=== PATIENT | female | born 1990 | race Caucasian/White ===

== ENCOUNTER 2023-08-21 01:59 | Emergency (ER) | payer BC, SELFPAY ==
[2023-08-21 02:06] VITALS: BP 149/82; PULSE 99; RESP 18; TEMP 36.7; O2SAT 99; BMI 43.1
[2023-08-21] MEDS: ONDANSETRON ODT 4 MG TAB PO (02:35)
--- NOTE | 2023-08-21 02:37 | ED.NAVMDI ---
HPI - Nausea/Vomiting/Diarrhea General Chief complaint: Diarrhea Stated complaint: Diarrhea, middle abdominal pain Time Seen by Provider: 08/21/23 02:11 Source: patient Mode of arrival: ambulatory Limitations: no limitations History of Present Illness HPI Narrative: 33-year-old female reports 2 day history of diarrhea and cramping abdominal pain in the left upper quadrant. Has been nauseated and had a couple of dry heaves tonight but no vomiting. No bloody stools. No fevers over 100.4. No dizziness or feelings of hypotension. She has not tried any Tylenol or ibuprofen. She tried taking a couple of Pepto-Bismol tablets earlier today with no improvement in her symptoms. Has not tried Imodium. No known sick contacts, no other household contacts ill. Not immunocompromised. No pelvic pain, dysuria. No history of abdominal surgeries. Is able to hold down liquids and some food. Is urinating at least 3 times daily. Patient states that the pain is dull and achy but comes in crampy sharp waves at times that do improve after bowel movements. She reports that she has never had diarrhea this bad. Past medical history notable for depression and anxiety. Reports that her home meds are Strattera, bupropion, venlafaxine. At bedtime she uses clonidine, Vistaril and Remeron. No pertinent travel. ROS notable for the GI symptoms as above only, otherwise denies times 12 systems. Related Data Home Medications Medication Instructions Recorded Confirmed atomoxetine PO 08/21/23 bupropion HCl PO 08/21/23 clonidine HCl .ROUTE 08/21/23 hydroxyzine pamoate .ROUTE 08/21/23 mirtazapine .ROUTE 08/21/23 venlafaxine PO 08/21/23 Allergies Allergy/AdvReac Type Severity Reaction Status Date / Time No Known Drug Allergies Allergy Verified 08/21/23 02:08 [facility] Social History Smoking Status: Never smoker Do you use any of these nicotine containing products: Vaping Products Second hand tobacco smoke exposure: No How often do you have a drink containing alcohol: never How often do you have six or more drinks on one occasion: Never AUDIT-C Alcohol total score: 0 Non-prescribed substance use: former substance user Exam Const: Vital Signs, click to edit/add: Vital Signs - 24 hr 08/21/23 02:06 08/21/23 02:43 Temperature 98.0 F 98.0 F Pulse Rate [Right Pulse Oximeter] 99 Respiratory Rate 18 Blood Pressure [Ri ght Upper Arm] 149/82 H Pulse Oximetry 99 Oxygen Delivery Me thod Room Air Documenting provider has reviewed patient's vital signs: yes Common normals: no apparent distress and alert Other: Appears well nourished, well hydrated. No signs of intoxication or impairment. Good historian. HENMT: Common normals: normocephalic Head and scalp: normocephalic Face and sinus: normal facial exam Mouth: oral and palatal mucosa normal Throat: posterior oropharynx normal Eye: Common normals: conjunctivae normal and no scleral icterus General eye: normal appearance of both eyes Conjunctiva: conjunctiva(e) normal Neck & C-Spine: Common normals: no lymphadenopathy Resp: Common normals: normal respiratory effort, no use of accessory muscles and clear to auscultation bilaterally Effort & inspection: able to speak in complete sentences Auscultation: clear to auscultation bilaterally Cardio: Common normals: regular rate, regular rhythm, S1 normal heart sound, S2 normal heart sound and no murmurs Rate: regular rate Rhythm: regular rhythm Heart sounds: S1 normal and S2 normal GI: Common normals: Normal to inspection, nondistended, normoactive bowel sounds present, soft to palpation and no masses Palpation: soft Other: Mild tenderness to left upper quadrant only. No rebound tenderness, guarding or mass. Extremity: Common normals: normal to inspection and no pedal edema Neuro: Sensorium/orientation: alert Motor exam: no movement abnormalities noted Psych: Activity/motor behavior: appropriate eye contact Mood and affect: euthymic mood Insight: insight good Judgement: judgment good Skin: Common normals: no rashes or lesions noted General skin exam: no rashes or lesions noted Course Course ED Course: 33-year-old female with diarrheal illness. No red flags of bloody diarrhea, severe abdominal pain, fever, hypotension, tachycardia, or signs of dehydration. No signs of obstruction. Has not tried adequate oral symptomatic control medications. Counseled patient that I do not think she would benefit from IV fluids, lab work or CT scan without a trial of oral medications. Recommended 4 mg of loperamide, 10 mg of Toradol and 4 mg of Zofran. We will let this sit for 20-30 minutes and then do a trial of oral rehydration. If she tolerates this well, can manage with this outpatient otherwise consider additional workup if it is unsuccessful. Reevaluation(s) Time of Reevaluation #1: 03:36 Reevaluation #1: Re-evaluation 45 minutes after medication shows that she is feeling much better. She has held down to glasses of liquids and has had no further diarrhea. We discussed home management with Imodium, will give Zofran from vending machine medications, push fluids, alarm symptoms reviewed that would warrant ED presentation. All questions answered. She verbalizes understanding and agreement Vital Signs Vital signs: Initial Vital Signs Temperature 98.0 F 08/21/23 02:06 Temperature Source Temporal Artery Scan 08/21/23 02:06 Pulse Rate 99 08/21/23 02:06 Respiratory Rate 18 08/21/23 02:06 Blood Pressure 149/82 H 08/21/23 02:06 Blood Pressure Mean 104 08/21/23 02:06 Blood Pressure Position Sitting 08/21/23 02:06 Pulse Oximetry 99 08/21/23 02:06 Oxygen Delivery Method Room Air 08/21/23 02:06 Vital Signs Temperature 98.0 F 08/21/23 02:06 Pulse Rate 99 08/21/23 02:06 Respiratory Rate 18 08/21/23 02:06 Blood Pressure 149/82 H 08/21/23 02:06 Pulse Oximetry 99 08/21/23 02:06 Oxygen Delivery Method Room Air 08/21/23 02:06 Temperature 98.0 F 08/21/23 02:43 Pulse Rate 99 08/21/23 02:06 Respiratory Rate 18 08/21/23 02:06 Blood Pressure 149/82 H 08/21/23 02:06 Pulse Oximetry 99 08/21/23 02:06 Oxygen Delivery Method Room Air 08/21/23 02:06 Medications Administered Medications: Generic Name Dose Route Start Last Admin Trade Name Freq PRN Reason Stop Dose Admin Ketorolac Tromethamine 10 mg 08/21/23 02:36 08/21/23 02:43 Ketorolac 10 Mg Tablet PO 08/21/23 02:37 10 mg ONCE ONE Administration Loperamide HCl 4 mg 08/21/23 02:36 08/21/23 02:43 Loperamide Hcl 2 Mg Capsule PO 08/21/23 02:37 4 mg ONCE ONE Administration Ondansetron HCl 4 mg 08/21/23 02:36 08/21/23 02:35 Ondansetron Odt 4 Mg Tab PO 08/21/23 02:37 4 mg ONCE ONE Administration Discharge Plan Discharge Clinical Impression: Gastroenteritis Patient Disposition: Home, Self-Care Condition: Improved Instructions: Acute Diarrhea (ED) Additional Instructions: I am glad that the medications are helping. For many people, a single dose of the Imodium is often sufficient to treat symptoms. I will give you a small supply of Zofran, the anti nausea medication. Keep pushing fluids as much as possible. 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 Would recommend that you take 1 tablet for each additional large bout of diarrhea, up to every 2 hours. Try not to exceed 10 tablets in 24 hours. If you start having high fevers, bloody diarrhea or signs and symptoms of dehydration, I would come back to the emergency department. At this time, the risk of radiation from CT scan seems to outweigh any potential benefit. Your vital signs and exam are not suggestive of dehydration or bacterial infection. Rest for today and push fluids. Slowly advance her diet as tolerated, starting with crackers, toast and bland foods . Avoid alcohol. May return to work or other social obligations Thursday if you are feeling better. Activity Level: Activity as Tolerated Discharge Diet: Regular Prescriptions: No Action clonidine HCl .ROUTE venlafaxine PO atomoxetine [Strattera] PO hydroxyzine pamoate .ROUTE mirtazapine .ROUTE bupropion HCl [Wellbutrin SR] PO Follow Up/Referrals: Provider,Not a Local [Primary Care Provider] - Stand Alone Forms: [employer] Info Instructions
[2023-08-21 02:43] VITALS: TEMP 36.7
[2023-08-21] MEDS: KETOROLAC 10 MG TABLET PO (02:43)
[2023-08-21] MEDS: LOPERAMIDE HCL 2 MG CAPSULE 4 MG PO (02:43)
[2023-08-21 03:38] VITALS: BP 135/74; PULSE 89; RESP 18; TEMP 36.7; O2SAT 99
[2023-08-21 03:39] VITALS: BP 135/74; PULSE 89; RESP 18; TEMP 36.7
== END 2023-08-21 03:39 | disposition home or self-care (01) ==
PROVIDERS: Emergency Provider Family Medicine
DX: K52.9 Noninfective gastroenteritis and colitis, unspecified (principal)
CPT/HCPCS: 99283; 99284; A9270

== ENCOUNTER 2023-12-17 20:46 | Emergency (ER) | payer MEDICAID, SELFPAY ==
[2023-12-17 21:00] VITALS: BP 146/103; PULSE 104; RESP 18; TEMP 37.3; O2SAT 98; BMI 43.1
[2023-12-17 21:01] LABS: Appearance Urine Turbid (Clear); Bilirubin Urine Negative (Negative); Blood Urine 2+ (Negative); Color Urine Amber (Yellow); Glucose Urine Negative (Negative); Ketones Urine Negative (Negative); Leukocyte Esterase Urine 3+ (Negative); Nitrite Urine Negative (Negative); Protein Urine 3+ (Negative); Specific Gravity Urine 1.025 (1.000-1.030)
[2023-12-17 21:11] LABS: Bacteria Urine Moderate; RBC Urine 50-100 (0-2); Squamous Epithelial Cell Urine Moderate (None-Few); WBC Urine >100 (0-5)
--- NOTE | 2023-12-17 21:25 | ED.GENADULT ---
HPI - General Adult General Date Seen: 12/17/23 Chief complaint: Urogenital Problems, Female Stated complaint: Poss UTI Time Seen by Provider: 12/17/23 21:11 History of Present Illness HPI narrative: This is a pleasant 33-year-old female with a past medical history of frequent bladder infections, also history of drug abuse (now sober, going to meetings). She presents to the ER tonight with concern for a bladder infection. She notices symptoms of bladder infections well, having had so many over the years. She recalls that she had a bladder infection about a month ago that was treated through the [facility] in [place] with a course of cephalexin and got better. She has not had any symptoms for the past several weeks. This evening at the end of her workday she had an episode of significant dysuria that she took as the onset of bladder infection symptoms. Since then she has also had a little bit of urgency and suprapubic discomfort. No other symptoms. No fever chills. No nausea or vomiting. No flank pain. No body aches. No vaginal bleeding or discharge. She came to the ER tonight after she finished her work day and went to her and a meeting, knowing that she had to work all day tomorrow and that typically runs will worse every day until she gets some treated. Related Data Home Medications Medication Instructions Recorded Confirmed atomoxetine PO 08/21/23 bupropion HCl PO 08/21/23 clonidine HCl .ROUTE 08/21/23 hydroxyzine pamoate .ROUTE 08/21/23 mirtazapine .ROUTE 08/21/23 venlafaxine PO 08/21/23 Allergies Allergy/AdvReac Type Severity Reaction Status Date / Time No Known Drug Allergies Allergy Verified 08/21/23 02:08 [facility] Social History Smoking Status: Never smoker Do you use any of these nicotine containing products: Vaping Products Second hand tobacco smoke exposure: No How often do you have a drink containing alcohol: never How often do you have six or more drinks on one occasion: Never AUDIT-C Alcohol total score: 0 Non-prescribed substance use: former substance user Exam Narrative: Exam Narrative: Constitutional: Appears well-developed and well-nourished. Active. Non-toxic appearing. HENT: Head: Atraumatic. No signs of injury. Nose: No nasal discharge. Mouth/Throat: Mucous membranes are moist. Eyes: Conjunctivae normal and EOM are normal. Pupils are equal, round, and reactive to light. Right eye exhibits no discharge. Left eye exhibits no discharge. No icterus. Neck: Normal range of motion. Neck supple. No adenopathy. No stridor. Cardiovascular: Normal rate and regular rhythm. No murmur heard. No murmurs, rubs, or gallops. Brisk capillary refill Pulmonary/Chest: Effort normal. No stridor. No respiratory distress. No wheezes.No rhonchi. No rales. No retractions. Abdominal: Soft. No distension. No mass. There is no tenderness. There is no rebound and no guarding. No CVA tenderness Musculoskeletal: Normal range of motion. No edema. No tenderness. No deformity. Neurological: Alert. Normal strength. No cranial nerve deficit or sensory deficit. Coordination normal. GCS eye subscore is 4. GCS verbal subscore is 5. GCS motor subscore is 6. Skin: Skin is warm. No rash noted. Const: Vital Signs, click to edit/add: Vital Signs - 24 hr 12/17/23 21:00 Temperature 99.1 F Pulse Rate [Pulse Oximeter] 104 H Respiratory Rate 18 Blood Pressure [Ri t Upper Arm] 146/103 H Pulse Oximetry 98 Oxygen Delivery Me thod Room Air Course Vital Signs Vital signs: Initial Vital Signs Temperature 99.1 F 12/17/23 21:00 Temperature Source Temporal Artery Scan 12/17/23 21:00 Pulse Rate 104 H 12/17/23 21:00 Respiratory Rate 18 12/17/23 21:00 Blood Pressure 146/103 H 12/17/23 21:00 Blood Pressure Mean 117 H 12/17/23 21:00 Blood Pressure Position Sitting 12/17/23 21:00 Pulse Oximetry 98 12/17/23 21:00 Oxygen Delivery Method Room Air 12/17/23 21:00 Vital Signs Temperature 99.1 F 12/17/23 21:00 Pulse Rate 104 H 12/17/23 21:00 Respiratory Rate 18 12/17/23 21:00 Blood Pressure 146/103 H 12/17/23 21:00 Pulse Oximetry 98 12/17/23 21:00 Oxygen Delivery Method Room Air 12/17/23 21:00 Temperature 99.1 F 12/17/23 21:00 Pulse Rate 104 H 12/17/23 21:00 Respiratory Rate 18 12/17/23 21:00 Blood Pressure 146/103 H 12/17/23 21:00 Pulse Oximetry 98 12/17/23 21:00 Oxygen Delivery Method Room Air 12/17/23 21:00 Medical Decision Making MDM Narrative Medical decision making narrative: This patient presents for evaluation of dysuria that began this evening, as well as a little bit of bladder suprapubic pain. This clinically is consistent with a urinary tract infection. There is some sign of contamination on the urinalysis with moderate epithelial cells, however the patient's symptoms are highly suggestive for UTI. The amount of pyuria seen on the urinalysis also correlates with infection. There has been no fever, back/flank pain or significant abdominal pain. There is no clinical evidence of pyelonephritis, appendicitis, colitis, diverticulitis or any intraabdominal catastrophe. The patient will be started on antibiotics for the infection. Return if increasing pain, vomiting, fever, or inability to tolerate the oral antibiotic. Follow up with primary physician is indicated if not improving in 2-3 days. She had just finished a course of cephalexin for UTI about a month ago so would not put her back on cephalosporins given risk of resistance. Instymeds prescription for Macrobid 100 mg b.i.d. for 7 days Phenazopyridine 200 mg t.i.d. p.r.n.. Lab Data Labs: Lab Results 12/17/23 Range/Units 20:50 Urine Color Jie A (Yellow) Urine Appearance Turbid A (Clear) Urine pH 6.0 (5.0-8.5) Ur Specific [place] 1.025 (1.000-1.030) Urine Protein 3+ A (Negative) Urine Glucose (UA) Negative (Negative) Urine Ketones Negative (Negative) Urine Blood 2+ A (Negative) Urine Nitrite Negative (Negative) Urine Bilirubin Negative (Negative) Urine Urobilinogen 1.0 (0.2-1.0) Ur Leukocyte Esterase 3+ A (Negative) Urine RBC 50-100 A (0-2) Urine WBC >100 A (0-5) Ur Squamous Epith Cells Moderate A (None-Few) Urine Bacteria Moderate A (None) Discharge Plan Discharge Clinical Impression: Urinary tract infection Patient Disposition: Home, Self-Care Condition: Stable Instructions: Urinary Tract Infection in Women (DC) Additional Instructions: As we discussed, please use the Macrobid (antibiotic) to treat your infection. Take it twice daily for 1 week. Use the phenazopyridine to treat the urinary tract infection symptoms. Caution because phenazopyridine can cause your urine to turn orange colored. Monitor your symptoms carefully and if you get worse come back to the ER right away, especially if you have high fever, body aches or chills, vomiting, pain in your back or kidney or flank, or if you have any other problems Please recheck with your doctor within 1 week Prescriptions: No Action clonidine HCl .ROUTE venlafaxine PO atomoxetine [Strattera] PO hydroxyzine pamoate .ROUTE mirtazapine .ROUTE bupropion HCl [Wellbutrin SR] PO Follow Up/Referrals: Provider,Not a Local [Primary Care Provider] - Stand Alone Forms: [employer] Info Instructions
--- OUTSIDE RECORDS SUMMARY | 2023-12-17 21:35 | XMS_ITS | Clinical Summary ---
Author Name Unknown Organization [facility] Address [place], [place] [address] Care Team Providers Care Metallurgy Teacher Name Role Phone Brigitte Parekh Primary Care Provider [phone] Allergies Active Allergy Reactions Criticality Noted Date Comments Atomoxetine Other - Describe In Comment Field Medium 10/11/2020 Moodiness; tried it in Aug 2020 for ~1 week right when [facility] because she was so werner. Irritable and sad. Citalopram Other - Describe In Comment Field Low 08/12/2017 Medications Medication Sig Dispensed Refills Start Date End Date Status buPROPion (WELLBUTRIN XL) 300 mg Extended-Release tablet Take 300 mg by mouth once daily. 450MG 11/08/2019 Active etonogestrel subdermal implant (NEXPLANON) 68 mg implant Inject 68 mg subcutaneous every 3 years. Active melatonin 5 mg tab tablet Take 5 mg by mouth at bedtime. 10/11/2020 Active omeprazole (PRILOSEC) 20 mg Delayed-Release capsule Take 20 mg by mouth once daily before a meal. 08/29/2020 Active venlafaxine (EFFEXOR XR) 150 mg Extended-Release capsule Take 150 mg by mouth every morning. 06/11/2021 Active glycopyrrolate (ROBINUL) 1 mg tablet 04/16/2022 Active atomoxetine (STRATTERA) 25 mg capsule 80 mg. 12/19/2021 Active multivitamin (MVI) tablet Take 1 Tablet by mouth once daily. 0 07/13/2023 Active cloNIDine HCL (CATAPRES) 0.1 mg tablet Take 1 Tablet (0.1 mg) by mouth at bedtime. 0 07/13/2023 Active hydrOXYzine HCL (ATARAX) 25 mg tabletIndications: LONNY (generalized anxiety disorder) Take 2 Tablets (50 mg) by mouth every 6 hours if needed for Anxiety. 25 Tablet 07/13/2023 Active mirtazapine (REMERON) 30 mg tablet Take 1 Tablet (30 mg) by mouth at bedtime. 0 07/13/2023 Active Active Problems Problem Noted Date Diagnosed Date Attention deficit disorder (ADD) without hyperac tivity 12/03/2020 Adjustment insomnia 10/11/2020 Chronic bilateral thoracic back pain 10/11/2020 Recurrent major depressive disorder, in full rem ission 10/11/2020 Chronic pain of both shoulders 01/22/2020 Muscle weakness 01/22/2020 Neck pain 01/22/2020 Trapezius muscle spasm 01/22/2020 Segmental and somatic dysfunction 01/17/2020 LONNY (generalized anxiety disorder) 03/18/2019 History of methamphetamine abuse 03/18/2019 Overview: Effective living ctr 2017. Goes to NA/AA meetings Effective living ctr 2017. Goes to NA/AA meetings Tobacco abuse 03/18/2019 Overview: 1ppd Acne 11/02/2018 Episode of recurrent major depressive disorder 1 10/13/2016 Overview: manadgeable, will call with concerns or increases Encounters Date Type Department Care Team Description 11/03/2023 2:15 PM CDT Office Visit [facility] [address] [place] [address] Belinda Ward, BREAKDOWN PERSON Dysuria (Painful urination started 10/29. Has a history of MRSA) 11/03/2023 Travel from Last 3 Months Immunizations Name Administration Dates Next Due HPV 9 (Gardasil 9) 07/01/2019 Hepatitis A (Adult) 03/09/2012 Hepatitis A (Peds) 10/26/2008 Hepatitis B (Adult) 02/03/2022 Human Papilloma Virus Vaccine 03/09/2012, 010 Influenza, IIV3 (Age >=3 years) 07/27/2013 Influenza, IIV4 05/10/2020, 9,04/28/2017,05/29 Meningococcal Vaccine (Menactra) 10/26/2008 Pneumococcal Poly,23-Valent (Pneumovax) 05/11/2017 Td (Age >=7 Years) 11/19/2004 Tdap 02/19/2017, 5,07/27/2013,03/09 Social History Tobacco Use Types Packs/Day Years Used Date Smoking Tobacco: Every Day Cigarettes Smokeless Tobacco: Never Tobacco Cessation:Ready to Q uit: Not Asked; Counseling Given: Not Answered Comments:vape Alcohol Use Standard Drinks/Week Comments Not Currently 0 (1 standard drink = 0.6 oz pur e alcohol) PHQ-2 Answer Date Recorded PHQ-2 TOTAL SCORE 0 07/13/2023 Social Connections Answer Date Recorded Frequency of Communication with Friends and Fami ly 0 11/03/2023 Financial Resource Strain Answer Date R ecorded Difficulty of Paying Living Expenses 3 11/03/2023 Difficulty of Paying Living Expenses Not on file 11/03/2023 Food Insecurity Answer Date Recorded Worried About Running Out of Food in the Last Ye ar 1 11/03/2023 Transportation Needs Answer Date Record ed Lack of Transportation (Medical) 1 11/03/2023 Housing Stability Answer Date Recorded Unable to Pay for Housing in the Last Year 1 11/03/2023 Sex and Gender Information Value Date Recorded Sex Assigned at Not on file Gender Identity Not on file Sexual Orientation Not on file Obstetrics History Last Filed Vital Signs Vital Sign Reading Time Taken Comments Blood Pressure 124/76 11/03/2023 2:22 PM CDT Pulse 94 11/03/2023 2:22 PM CDT Temperature 36.8 ??C (98.3 ??F) 11/03/2023 2:22 PM CD T Respiratory Rate 15 04/23/2022 1:14 PM CDT Oxygen Saturation 97% 11/03/2023 2:22 PM CDT Inhaled Oxygen Concentration - - Weight 128.4 kg (283 lb) 11/03/2023 2:22 PM CDT Height 170.2 cm (5' 7.01) 07/13/2023 9:50 AM CS T Body Mass Index 44.31 07/13/2023 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 Plan of Treatment Health Maintenance Due Date Last Done Comments Pneumococcal series for age 6-64 (2 of 2 - PCV) 05/11/2018 05/11/2017 COVID-19 vaccine series (1 - season) 2023 Pap test for age 21-65 09/10/2023 1 (Verified in Care Everywhere or Patient Record) Influenza for age 9-49 04/17/2024 0, 07/01/2019, 04/28/2017, Additional history exists BMI (ht and wt on same day) for age 18+ 07/13/2024 07/13/2023 Depression screening for age 12+ 2024 07/14/20 23, 07/13/2023 Tetanus booster 02/19/2027 02/19/2017, 0 01/2015, 07/27/2013, Additional history exists Tdap Completed 02/19/2017, 0 01/2015, 07/27/2013, Additional history exists HIV for age 15-65 Completed 11/03/2023 Hepatitis C screening for ag e 18-79 Completed 11/03/2023 Procedures Procedure Name Priority Date/Time Associated Diagnosis Comments ANTI HCV Routine 11/03/2023 3:00 PM CDT Screening examination for STD (sexually transmitted disease) TREPONEMA PALLIDUM Routine 11/03/2023 3: 00 PM CDT Screening examination for STD (sexually transmitted disease) ANTI HIV 1/2 Routine 11/03/2023 3:00 PM CDT Screening examination for STD (sexually transmitted disease) GC CHLAMYDIA TRACH PROBE STAT 11/03/2023 2:40 PM CDT Screening examination for STD (sexually transmitted disease) TRICHOMONAS, ROSINA, AND BACTERIAL VAGINOSIS BY JONO Routine 11/03/2023 2:40 PM CDT Screening examination for STD (sexually transmitted disease) URINE CULTURE Add On 11/03/2023 2:15 PM CDT Dysuria Screening examination for STD (sexually transmitted disease) URINALYSIS MICROSCOPIC Routine 11/03/2023 2:15 PM CDT Dysuria UA W/ SEDIMENT EXAM REFLEXED PER CRITERIA Routine 11/03/2023 2:15 PM CDT Dysuria from Last 3 Months Results * TREPONEMA PALLIDUM (11/03/2023 3:00 PM CDT) TREPONEMA PALLIDUM Non-Reacti ve Non-Reacti ve 11/03/2023 8:08 PM CDT [facility] Blood BLOOD SPECIMEN / Unknown Venipuncture / Unknown 11/03/2023 3:00 PM CDT 11/03/2023 3:00 PM CDT Belinda Ward NP SEND OUTS Performing Organization Address [facility] Co de Phone Number [facility] [address] [place] [address], [place] * ANTI HCV (11/03/2023 3:00 PM CDT) HEPATITIS C ANTIBODY Non-Reacti ve Non-React suki 11/03/2023 8:09 PM CDT [facility] Comment:Please note, per www .CDC.gov: If a patient is known to be at high risk of HCV infection, or is symptomatic, and the physician's suspicion of HCV infection is high, HCV RNA testing is often employed and is of diagnostic value, even after an initial negative anti-HCV test result. Blood BLOOD SPECIMEN / Unknown Venipuncture / Unknown 11/03/2023 3:00 PM CDT 11/03/2023 3:00 PM CDT Belinda Ward NP SEND OUTS Performing Organization Address City/[facility]/ZIP Co de Phone Number [facility] [address] [place] [address], [place] * ANTI HIV 1/2 (11/03/2023 3:00 PM CDT) HIV-1/HIV-2 SCREEN Non-Reacti ve Non-Reacti ve 11/03/2023 8:03 PM CDT [facility] Comment:HIV-1 p24 and HIV-1/ HIV-2 Ab Not Detected. Blood BLOOD SPECIMEN / Unknown Venipuncture / Unknown 11/03/2023 3:00 PM CDT 11/03/2023 3:00 PM CDT Belinda Ward NP SEND OUTS Performing Organization Address City/[facility]/ZIP Co de Phone Number [facility] [address] [place] [address], [place] * TRICHOMONAS, ROSINA, AND BACTERIAL VAGINOSIS BY JONO (11/03/2023 2:40 PM CDT) ROSINA SPECIES Negative Negative 12:32 AM CDT [facility] ROSINA GLABRATA Negative Negative 11/04/2023 12:32 AM CDT [facility] TRICHOMONAS VVA Negative Negative 12:32 AM CDT [facility] BACTERIAL VAGINOSIS Negative Negative 11/04/2023 12:32 AM CDT [facility] Other VAGINAL SWAB / Unknown Non-Blood / Unknown 11/03/2023 2:40 PM CDT 11/03/2023 3:05 PM CDT Belinda Ward NP MICROBIOLOGY [facility] [address] [place] [address], [place] * GC CHLAMYDIA TRACH PROBE (11/03/2023 2:40 PM CDT) CHLAMYDIA PROBE Negative 4 1:09 AM CDT [facility] N GONORRHOEAE PROBE Negative 11/04/2023 1:09 AM CDT [facility] Other VAGINAL SWAB / Unknown Non-Blood / Unknown 11/03/2023 2:40 PM CDT 11/03/2023 3:05 PM CDT Belinda Ward NP MICROBIOLOGY [facility] [address] [place] [address], [place] * (ABNORMAL) URINALYSIS MICROSCOPIC (11/03/2023 2:15 PM CDT) RBC 0-2 0-2, None Seen /HPF 11/03/2023 2:33 PM CDT [facility] [address] [employer] WBC 26-50(A) 0-2, 3-5, None Seen /HPF 11/03/2023 2:33 PM CDT [facility] BACTERIA Many(A) None Seen, Rare, Few Bacteria/H PF 11/03/2023 2:33 PM CDT [facility] EPITHELIAL CELLS Few None Seen, Few Epi/HPF 11/03/2023 2:33 PM CDT [facility] WHITE CELL CLUMPS Present(A) (none) 11/03/2023 2:33 PM CDT [facility] Urine URINE SPECIMEN / Unknown Non-Blood / Unknown 11/03/2023 2:15 PM CDT 11/03/2023 2:15 PM CDT Belinda Ward NP URINE [facility] [address] [employer] [address] [place] [address], [place] [phone] * (ABNORMAL) URINE CULTURE (11/03/2023 2:15 PM CDT) CULTURE RESULT(A) 11/06/2023 7:08 AM CDT [facility] CULTURE 50,000-100,000 CFU/mL Staphylococcus aureus 11/06/2023 7:08 AM CDT [facility] Urine URINE SPECIMEN / Unknown Non-Blood / Unknown 11/03/2023 2:15 PM CDT 11/03/2023 2:15 PM CDT Narrative Organism Antibiotic Method Susceptibility Staphylococcus aureus OXACILLIN 0.5: S Comment:Oxacillin eastman sceptible should not be interpreted as penicillin or amoxicillin susceptible. Staphylococcus aureus DOXYCYCLINE <=0.5: S Staphylococcus aureus CEFAZOLIN S Staphylococcus aureus TRIMETHOPRIM/SULF <=0.5/9.5: S Staphylococcus aureus NITROFURANTOIN <=16: S Belinda Ward NP MICROBIOLOGY [email or web address] [address] [place] [address], [place] * (ABNORMAL) UA W/ SEDIMENT EXAM REFLEXED PER CRITERIA (11/03/2023 2:15 PM CDT) COLOR Yellow Yellow Color 11/03/2023 2:23 PM CDT [employer] CLARITY Slightly Cloudy(A) Clear Clarity 11/03/2023 2:23 PM CDT [employer] SPECIFIC GRAVITY,URINE 1.015 1.010, 1.015, 1.020, 1.025 11/03/2023 2:23 PM CDT [facility] PH,URINE 6.5 6.0, 7.0, 8.0, 5.5, 6.5, 7.5, 8.5 11/03/2023 2:23 PM CDT [facility] UROBILINOGEN, QUALITATIVE Normal Normal EU/dl 11/03/2023 2:23 PM CDT [facility] PROTEIN, URINE Negative Negative mg/dL 11/03/2023 2:23 PM CDT [facility] GLUCOSE, URINE Negative Negative mg/dL 11/03/2023 2:23 PM CDT [facility] KETONES,URINE Negative Negative mg/dL 11/03/2023 2:23 PM CDT [facility] BILIRUBIN,URI NE Negative Negative 11/03/2023 2:23 PM CDT [facility] OCCULT BLOOD,URINE Large(A) Negative 11/03/2023 2:23 PM CDT [facility] NITRITE Negative Negative 11/03/2023 2:23 PM CDT [facility] LEUKOCYTE ESTERASE Large(A) Negative 11/03/2023 2:23 PM CDT [facility] [employer] [facility] Urine URINE SPECIMEN / Unknown Non-Blood / Unknown 11/03/2023 2:15 PM CDT 11/03/2023 2:15 PM CDT Belinda Ward BREAKDOWN PERSON URINE [facility] [address] [place] [address], [place] [phone] from Last 3 Months Additional Health Concerns Infection Onset Date Last Indicated MRSA 04/23/2022 04/23/2022 Care Teams Metallurgy Teacher Relationship Specialty Start Date End Date Brigitte Parekh PA [address] [place] [address] PCP - General Physician Metal Treater 07/13/23
[2023-12-17 21:49] VITALS: BP 135/84; PULSE 89; RESP 18; TEMP 37.3; O2SAT 98
== END 2023-12-17 21:53 | disposition home or self-care (01) ==
LOC: ED 21:33
PROVIDERS: Emergency Provider Emergency Medicine
DX: N39.0 Urinary tract infection, site not specified (principal)
CPT/HCPCS: 81001; 87086; 99282; 99283

== ENCOUNTER 2025-01-05 15:50 | Emergency (ER) | payer MEDICAID, SELFPAY ==
--- OUTSIDE RECORDS SUMMARY | 2024-12-30 17:44 | XMS_ITS | Encounter Summary ---
Author Organization [facility] Address [address] [place] [address] Care Team Providers Care Secretary Bookkeeper Name Role Phone Rob Moreno MD Unavailable [phone] Flory Golden NP Unavailable [phone] Wilberto French MD Unavailable [phone] No Ref-Primary, Physician Primary Care Provider Emani Estes APRN FLASHER ADJUSTER Unavailable Reason for Visit * Reason Comments Wound Check Encounter Details Date Type Department Care Team (Late st Contact Info) Description 12/30/2024 5:44 PM CDT - 12/30/2024 6:39 PM CDT Emergency [facility] Emergency Dept [address] [place] [address] Cyn Raymundo MD [facility] [address] [place], [place] [id number] Discharge Disposition: Left Without Being Seen Social History Tobacco Use Types Packs/Day Years Used Date Smoking Tobacco: Former Smokeless Tobacco: Never Alcohol Use Standard Drinks/Week Comments Not Currently 0 (1 standard drink = 0.6 oz pur e alcohol) PHQ-2 Answer Date Recorded PHQ-2 Score 0 02/24/2023 Adolescent Education Answer Date Record ed Getting School Help Needed Not on file 05/09 Comments No Sex and Gender Information Value Date Recorded Sex Assigned at Not on file 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 Gender Identity Not on file Sexual Orientation Not on file documented as of this encounter Last Filed Vital Signs Vital Sign Reading Time Taken Comments Blood Pressure 145/95 12/30/2024 3:17 PM CDT Pulse 98 12/30/2024 3:17 PM CDT Temperature 35.9 C (96.7 F) 12/30/2024 3:17 PM CDT Respiratory Rate 18 12/30/2024 3:17 PM CDT Oxygen Saturation 99% 12/30/2024 3:17 PM CDT Inhaled Oxygen Concentration - - Weight 121.4 kg (267 lb 10.2 oz) 12/30/2024 3:17 PM CDT Height 170.2 cm (5' 7) 12/30/2024 3:17 PM CDT Body Mass Index 41.92 12/30/2024 3:17 PM CDT documented in this encounter Medications at Time of Discharge acetaminophen (TYLENOL) 500 MG tabletIndications: Cutaneous abscess of back (any part, except buttock) Take 1 tablet (500 mg) by mouth every 6 hours as needed for mild pain 30 tablet 12/25/2021 atomoxetine (STRATTERA) 25 MG capsule 60 mg 12/19/2021 Biotin w/ Vitamins C & E (HAIR SKIN & NAILS GUMMIES PO) Take by mouth daily as needed buPROPion (WELLBUTRIN XL) 150 MG 24 hr tablet 11/29/2021 cloNIDine (CATAPRES) 0.1 MG tablet 09/18/2022 etonogestrel (NEXPLANON) 68 MG IMPLIndications:Palmer rveillance of previously prescribed implantable subdermal contraceptive 1 each (68 mg) by Subdermal route once glycopyrrolate (ROBINUL) 1 MG tablet Take 2 mg by mouth every morning 11/21/2021 hydrOXYzine (VISTARIL) 25 MG capsule Take 50 mg by mouth 3 times daily as needed 11/29/2021 ibuprofen (ADVIL/MOTRIN) 200 MG tablet Take 1-2 tablets by mouth every 4 hours as needed melatonin 3 MG tablet Take 5 mg by mouth nightly as needed mirtazapine (REMERON) 15 MG tablet Take 30 mg by mouth as needed 05/21/2022 multivitamin (ONE-DAILY) tabletIndications: Person living in residential institution Take 1 tablet by mouth daily 90 tablet 3 06/25/2022 omeprazole (PRILOSEC) [address] capsule Take 20 mg by mouth 08/29/2020 polyethylene glycol (MIRALAX) 17 GM/Dose powderIndications: Constipation, unspecified constipation type Take 17 g (1 Capful) by mouth daily as needed for constipation Use daily until passing soft stool daily then as needed 510 g 1 09/15/2023 venlafaxine (EFFEXOR-XR) 75 MG 24 hr capsule Take 37.5 mg by mouth 2 times daily 11/19/2020 documented as of this encounter ED Notes * Danni Heredia RN - 12/30/2024 6:38 PM CDT Pt called no answer this is 3rd call * Delfino Sanchez RN - 12/30/2024 6:27 PM CDT Pt called for a second time at 1827. Pt does not appear to be in lobby. * Delfino Sanchez RN - 12/30/2024 5:56 PM CDT Pt called at 1756. No answer from pt in lobby * Chelsea Lowry RN - 12/30/2024 3:14 PM CDT Pt arrives ambulatory into triage per [facility] for eval of wounds on her L buttock and side. Hx of MRSA. Wounds occur when she uses meth and picks her skin. Last use this morning - smokes or snorts does not inject. Denies fevers. Reports hx of similar wounds requesting antibiotics. Would like toreturn to [facility] today. No SI/HI. Calm and cooperative in triage. documented in this encounter Plan of Treatment Not on file documented as of this encounter Visit Diagnoses Not on filedocumented in this encounter Additional Health Concerns Infection Onset Date Last Indicated Resolved Time MRSA 12/23/2021 12/23/2021 Assessment Noted Time PHQ-9 Depression Total Score: 10 022 1:15 PM CDT documented as of this encounter Care Teams Secretary Bookkeeper Relationship Specialty Start Date End Date No Ref-Primary, Physician PCP - General 12/23/21 Rob Moreno MD [address] [facility] [address] [place], [place] [address] Referring Physician Family Medicine 10/04/20 Flory Golden, AUTOMATION CONTROL TECHNICIAN [facility] [address] [place] [phone] Referring Physician Primary Care - CC 12/19/21 Wilberto French MD [address] [facility] [address] [place], [place] [address] Dermapathology 12/19/21 Emani Estes APRN FLASHER ADJUSTER [address] [place] [id number] Assigned PCP 09/10/23 documented as of this encounter
--- OUTSIDE RECORDS SUMMARY | 2025-01-05 15:52 | XMS_ITS | Encounter Summary ---
Author Organization [facility] Address [address] [place] [address] Care Team Providers Care Meterman Name Role Phone Rob Moreno MD Unavailable [phone] Rebecca Pearce MD Primary Care Provider [phone] Rebecca Pearce MD Unavailable [phone] Oksana Palmer DO Unavailable [phone] Rebecca Pearce MD Unavailable [phone] Rob Moreno MD Unavailable [phone] Rebecca Pearce MD Unavailable [phone] Flory Golden NP Unavailable [phone] Wilberto French MD Unavailable [phone] No Ref-Primary, Physician Primary Care Provider Oksana Palmer DO Unavailable [phone] Emani Estes MAT CUTTER TELEGRAPH OFFICE ROUTE AIDE Unavailable Reason for Visit * Reason Onset Date Comments Appointment 12/13/2020 Scalp cyst Encounter Details Date Type Department Care Team (Late st Contact Info) Description 12/13/2020 Telephone [facility] [address] [place] [address] None Appointment (Scalp cyst) Social History Tobacco Use Types Packs/Day Years [...] on file 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 No / Unsure 02/24/2023 7:58 AM CDT documented as of this encounter Miscellaneous Notes * Telephone Encounter - Cesar Foreman - 12/19/2020 2:24 PM CDT [facility] Phone Message May a detailed message be left on voicemail: yes Reason for Call: Other: Lucia called regarding below and has not heard back within the 24 hour timeframe. Please call her back to schedule. Thanks Action Taken: Message routed to: [facility] ([facility]): DERM Travel Screening: Not Applicable * Telephone Encounter - Cesar Foreman - 12/14/2020 1:39 PM CDT [facility] Phone Message May a detailed message be left on voicemail: yes Reason for Call: Other: Lucia called regarding below. Please call her back to schedule. Thanks Action Taken: Message routed to: [facility] ([facility]): DERM Travel Screening: Not Applicable * Telephone Encounter - Cassy Baker - 12/13/2020 9:17 AM CDT [facility] Phone Message May a detailed message be left on voicemail: yes Reason for Call: Appointment Intake Referring Provider Name: Rob Moreno MD in FAMILY PRACTICE Diagnosis and/or Symptoms: Scalp cyst Please call Lucia to schedule Pt Thank you Action Taken: Message routed to: [facility] ([facility]): Derm Travel Screening: Not Applicable documented in this encounter Plan of Treatment Not on file documented as of this encounter Visit Diagnoses Not on filedocumented in this encounter Additional Health Concerns Infection Onset Date Last Indicated Resolved Time Rule Out COVID-19 12/23/2021 12/24/2021 12/24/2021 3:14 AM CDT COVID-19 12/23/2021 12/24/2021 01/14/2022 11:3 9 PM CDT MRSA 12/23/2021 12/23/2021 documented as of this encounter Care Teams Meterman Relationship Specialty Start Date End Date Rebecca Pearce MD [address] [facility] [address] [place] [address] PCP - General Family Medicine 10/10/20 12/22/21 No Ref-Primary, Physician PCP - General 12/23/21 Rob Moreno MD [facility] [id number] [address] Referring Physician Family Medicine 10/04/20 Rebecca Pearce MD [address] [place] [address] Assigned PCP 11/05/20 01/09/21 Oksana Palmer DO [address] [facility] [address] [place] [address] Assigned PCP 01/10/21 01/19/21 Rebecca Pearce MD [address] [place] [address] Assigned PCP 01/20/21 09/28/21 Rob Moreno MD [address] [facility] [address] [place] [address] Assigned PCP 09/29/21 12/07/21 Rebecca Pearce MD [address] [place] [address] Assigned PCP 12/08/21 03/21/22 Flory Golden NP [facility] [address] [place] [address] Referring Physician Primary Care - CC 12/19/21 Wilbreto French MD [address] [facility] 98 [place] [address] Dermapathology 12/19/21 Oksana Palmer DO [address] [facility] [address] [place] [address] Assigned PCP 03/22/22 09/09/23 Emani Estes APRN TELEGRAPH OFFICE ROUTE AIDE [address] [place] [address] Assigned PCP 09/10/23 documented as of this encounter
--- OUTSIDE RECORDS SUMMARY | 2025-01-05 15:52 | XMS_ITS | Clinical Summary ---
Author Organization [facility] Address [address] [place] [address] Care Team Providers Care Sterilizer Machine Operator Name Role Phone Madhav Moreno MD Unavailable [phone] Flory Golden NP Unavailable [phone] Wilberto French MD Unavailable [phone] No Ref-Primary, Physician Primary Care Provider Emani Estes MUD MIXER OPERATOR THERAPY DIRECTOR Unavailable Allergies Active Allergy Reactions Criticality Noted Date Comments Citalopram Fatigue,Other (See Comments) Low 017 Medications etonogestrel (NEXPLANON) 68 MG IMPLIndications:S urveillance of previously prescribed implantable subdermal contraceptive 1 each (68 mg) by Subdermal route once Active hydrOXYzine (VISTARIL) 25 MG capsule Take 50 mg by mouth 3 times daily as needed 11/30/19 22 Active glycopyrrolate (ROBINUL) 1 MG tablet Take 2 mg by mouth every morning 11/22/19 22 Active buPROPion (WELLBUTRIN XL) 150 MG 24 hr tablet 11/30/19 22 Active omeprazole (PRILOSEC) [address] capsule Take 20 mg by mouth 08/29/19 21 Active venlafaxine (EFFEXOR-XR) 75 MG 24 hr capsule Take 37.5 mg by mouth 2 times daily 11/20/19 21 Active Biotin w/ Vitamins C & E (HAIR SKIN & NAILS GUMMIES PO) Take by mouth daily as needed Active ibuprofen (ADVIL/MOTRIN) 200 MG tablet Take 1-2 tablets by mouth every 4 hours as needed Active melatonin 3 MG tablet Take 5 mg by mouth nightly as needed Active atomoxetine (STRATTERA) 25 MG capsule 60 mg 12/20/19 22 Active acetaminophen (TYLENOL) 500 MG tabletIndications :Cutaneous abscess of back (any part, except buttock) Take 1 tablet (500 mg) by mouth every 6 hours as needed for mild pain 30 tablet 12/26/19 22 Active mirtazapine (REMERON) 15 MG tablet Take 30 mg by mouth as needed 05/21/20 22 Active multivitamin (ONE-DAILY) tabletIndications :Person living in residential institution Take 1 tablet by mouth daily 90 tablet 3 06/25/20 22 Active cloNIDine (CATAPRES) 0.1 MG tablet 09/18/19 23 Active polyethylene glycol (MIRALAX) 17 GM/Dose powderIndications :Constipation, unspecified constipation type Take 17 g (1 Capful) by mouth daily as needed for constipation Use daily until passing soft stool daily then as needed 510 g 1 09/15/19 24 Active Active Problems Problem Noted Date Diagnosed Date Chronic bilateral thoracic back pain 10/11/2020 Recurrent major depressive disorder, in full rem ission 10/11/2020 Adjustment insomnia 10/11/2020 History of substance use disorder 10/11/2020 Attention deficit hyperactiv ity disorder (ADHD), combined type 10/11/2020 Chronic pain of both shoulders 01/22/2020 Neck pain 01/22/2020 LONNY (generalized anxiety disorder) 03/18/2019 History of marijuana use 03/18/2019 Overview (10/11/2020): Quit 7-18 History of methamphetamine abuse 03/18/2019 Overview (10/11/2020): Effective living ctr 2017. Goes to NA/AA meetings Encounters Date Type Department Care Team Description 12/30/2024 5:44 PM CDT - 12/30/2024 6:39 PM CDT Emergency [facility] Emergency Dept [address] [place] [phone] Cyn Raymundo MD Discharge Disposition: Left Without Being Seen 12/30/2024 Travel from Last 3 Months Immunizations Immunization Administration Dates Next Due HPV9 (Gardasil) 07/01/2019 Hepatitis A (VAQTA)(ADULT 19+) 03/09/2012 Hepatitis A (Vaqta/Havrix)(P eds 12m-18y) 10/26/2008 Meningococcal ACWY (Menactra ) 10/26/2008 Pneumococcal 23 valent 05/11/2017 TDAP Vaccine (Adacel) 02/19/2017, 015,07/27/2013,03/09 Td (Adult), Adsorbed 11/19/2004 Family History Medical History Relation Comments Depression Brother 1 Obesity Brother 1 Substance Abuse Brother 1 Alcoholism Father Depression Father Mental Illness Father Substance Abuse Father Depression Half-Sister 1 Arthritis Maternal Grandfather Cancer Maternal Grandfather Diabetes Maternal Grandfather Alzheimer Disease Maternal Grandmother Mental Illness Maternal Grandmother Alcoholism Mother Allergies Mother Asthma Mother Depression Mother Mental Illness Mother Obesity Mother Stomach Problem Mother Substance Abuse Mother Urinary tract infection Mother Depression Paternal Grandmother Hyperlipidemia Paternal Grandmother Hypertension Paternal Grandmother Mental Illness Paternal Grandmother Obesity Paternal Grandmother Relation Status Comments Brother 1 Brother 2 Alive Father Alive Half-Sister 1 Alive Half-Sister 2 Alive Maternal Grandfather Maternal Grandmother Mother Paternal Grandmother Social History Tobacco Use Types Packs/Day Years Used Date Smoking Tobacco: Former Smokeless Tobacco: Never Tobacco Cessation:Counseling Given: Not Answered Alcohol Use Standard Drinks/Week Comments Not Currently 0 (1 standard drink = 0.6 oz pur e alcohol) PHQ-2 Answer Date Recorded PHQ-2 Score 0 02/24/2023 Adolescent Education Answer Date Record ed Getting School Help Needed Not on file 05/09 Comments No Sex and Gender Information Value Date Recorded Sex Assigned at Not on file Legal Sex Female 7:37 AM SET UP TECHNICIAN Gender Identity Not on file Sexual Orientation Not on file Last Filed Vital Signs Vital Sign Reading [...] Mass Index 41.92 12/30/2024 3:17 PM CDT Plan of Treatment Health Maintenance Due Date Last Done Comments ADVANCE CARE PLANNING 1992 ANNUAL REVIEW OF HM ORDERS 1992 DEPRESSION ACTION PLAN 1992 HPV IMMUNIZATION (3 - 3-dose series) 09/23/2019 07/01/2019, 01/03/2010 HEPATITIS B IMMUNIZATION (2 of 3 - 19+ 3-dose series) 03/03/2022 02/03/2022 PHQ-9 06/25/2022 12/23/2021, 12/18/2021 YEARLY PREVENTIVE VISIT 12/18/2022 12/18/2021 COVID-19 Vaccine ( season) 2024 INFLUENZA VACCINE (Season Ended) 2025 05/10/2020, 07/01/2019, 04/28/2017, Additional history exists DTAP/TDAP/TD IMMUNIZATION (6 - Td or Tdap) 02/19/2027 02/19/2017, 06/22/2015, 07/27/2013, Additional history exists PAP 02/28/2027 02/29/2024, 08/18, 06/22/2017 ZOSTER IMMUNIZATION (1 of 2) 2042 MENINGITIS IMMUNIZATION Completed 10/26/2008 Pneumococcal Vaccine: Pediatrics (0 to 5 Years) and At-Risk Patients (6 to 49 Years) Aged Out 05/11/2017 No longer eligible based on patient's age to complete this topic HEPATITIS C SCREENING Completed 11/03/2023 , 06/25/2022, 12/18/2021, Additional history exists HIV SCREENING Completed 11/03/2023, 04/2022, 12/18/2021, Additional history exists Procedures Procedure Name Priority Date/Time Associated Diagnosis Comments HIV ANTIGEN ANTIBODY COMBO Routine 06/25/2022 11:38 AM SET UP TECHNICIAN Person living in residential institution HEPATITIS C SCREEN REFLEX TO HCV RNA QUANT AND GENOTYPE Routine 06/25/2022 11:38 AM SET UP TECHNICIAN Person living in residential institution PAP IMAGED THIN LAYER SCREEN Routine 09/10/2020 11:37 AM SET UP TECHNICIAN Screening for cervical cancer from Last 3 Months or Most Recently Relevant to Health Maintenance Results * HIV Antigen Antibody Combo (06/25/2022 11:38 AM SET UP TECHNICIAN) HIV Antigen Antibody Combo Nonreactive Nonreactive 06/26/2022 11:49 AM SET UP TECHNICIAN [facility] DO Comment:HIV-1 p24 Ag & HIV-1 /HIV-2 Ab Not Detected Blood STRUCTURE OF RIGHT UPPER LIMB / Unknown Venipuncture / Unknown 06/25/2022 11:38 AM SET UP TECHNICIAN 06/25/2022 11:38 AM SET UP TECHNICIAN us Flory Golden NP LAB - BLOOD ORDERABLES Final R esult Performing Organization Address City/[facility]/ZIP Co de Phone Number [facility] Specialty Core/Prot/Endo [address] [facility], [address] [phone] * Hepatitis C Screen Reflex to HCV RNA Quant and Genotype (06/25/2022 11:38 AM SET UP TECHNICIAN) Hepatitis C Antibody Nonreactive Nonreactive 06/26/2022 11:49 AM SET UP TECHNICIAN [facility] DO Blood STRUCTURE OF RIGHT UPPER LIMB / Unknown Venipuncture / Unknown 06/25/2022 11:38 AM SET UP TECHNICIAN 06/25/2022 11:38 AM SET UP TECHNICIAN Narrative [facility] - 06/26/2022 11:49 AM SET UP TECHNICIAN Assay performance characteristics have not been established for newborns, infants, and children. us Flory Golden NP LAB - BLOOD ORDERABLES Final R esult [facility] Specialty Core/Prot/Endo [address] [facility] [address] [facility], [address] [phone] * Pap imaged thin layer screen reflex to HPV if ASCUS - recommend age 25 - 29 (09/10/2020 11:37 AM SET UP TECHNICIAN) PAP FREDY Nova Report Patient Name: EMILEE CURRAN MR#: [id number] Specimen #: [id number] Collected: 09/10/2020 Received: 09/11/2020 Reported: 09/14/2020 15:15 Ordering Phy(s): MADHAV MORENO For improved result formatting, select 'View Enhanced Report Format' under Linked Documents section. SPECIMEN/STAIN PROCESS: Pap imaged thin layer prep screening (Surepath, FocalPoint with guided screening) Pap-Cyto x 1, Pap with reflex to HPV if ASCUS x 1 SOURCE: Cervical, endocervical Pap imaged thin layer prep screening (Surepath, FocalPoint with guided screening) SPECIMEN ADEQUACY: Satisfactory for evaluation. -Transformation zone component present. CYTOLOGIC INTERPRETATION: Negative for intraepithelial lesion or malignancy Electronically signed out by: LIZETTE Castrejon (ASCP) CLINICAL HISTORY: LMP: 09/02/20 Papanicolaou Test Limitations: Cervical cytology is a screening test with limited sensitivity; regular screening is critical for cancer prevention; Pap tests are primarily effective for the diagnosis/preventi on of squamous cell carcinoma, not adenocarcinomas or other cancers. COLLECTION SITE: Client: [facility] Location: [facility] (B) The technical component of this testing was completed at the [facility], with the professional component performed at the [facility], [address] [place] [phone] ([phone]) PAUL Cytologic material (specimen) 09/10/2020 11:37 AM SET UP TECHNICIAN 09/11/2020 8:52 AM SET UP TECHNICIAN Madhav Moreno MD LAB - [facility] SPECIMEN Final Result COPATH from Last 3 Months or Most Recently Relevant to Health Maintenance Additional Health Concerns Infection Onset Date Last Indicated MRSA 12/23/2021 12/23/2021 Care Teams Sterilizer Machine Operator Relationship Specialty Start Date End Date No Ref-Primary, Physician PCP - General 12/23/21 Madhav Moreno MD [address] [facility] [address] [place] [address] Referring Physician Family Medicine 10/04/20 Flory Golden, WELLNESS MANAGER [facility] [address] [place] [phone] Referring Physician Primary Care - CC 12/19/21 Wilberto French MD [address] [facility] [address] [place], [place] [phone] Dermapathology 12/19/21 Eamni Estes APRN THERAPY DIRECTOR [address] [place], [place] [phone] Assigned PCP 09/10/23
--- OUTSIDE RECORDS SUMMARY | 2025-01-05 15:52 | XMS_ITS | Clinical Summary ---
Author Organization [facility] Address [address] [place] [address] Care Team Providers Care Advertising Rep Name Role Phone Chelsea Islas MD Primary Care Provider [phone] Allergies Active Allergy Reactions Criticality Noted Date Comments Atomoxetine Other - Describe In Comment Field Medium 10/11/2020 Moodiness; tried it in Aug 2020 for ~1 week right when [facility] because she was so werner. Irritable and sad. Citalopram Other - Describe In Comment Field Low 08/12/2017 Medications buPROPion (WELLBUTRIN XL) 300 mg Extended-Release tablet Take 300 mg by mouth once daily. 0 Active etonogestrel subdermal implant (NEXPLANON) 68 mg implant Inject 68 mg subcutaneous every 3 years. Active melatonin 5 mg tab tablet Take 5 mg by mouth at bedtime. 1 Active omeprazole (PRILOSEC) 20 mg Delayed-Release capsule Take 20 mg by mouth once daily before a meal. 1 Active venlafaxine (EFFEXOR XR) 150 mg Extended-Release capsule Take 150 mg by mouth every morning. 1 Active glycopyrrolate (ROBINUL) 1 mg tablet 2 Active multivitamin (MVI) tablet Take 1 Tablet by mouth once daily. 0 3 Active cloNIDine HCL (CATAPRES) 0.1 mg tablet Take 1 Tablet (0.1 mg) by mouth at bedtime. 0 3 Active hydrOXYzine HCL (ATARAX) 25 mg tabletIndication s:LONNY (generalized anxiety disorder) Take 2 Tablets (50 mg) by mouth every 6 hours if needed for Anxiety. 25 Tablet 3 Active mirtazapine (REMERON) 30 mg tablet Take 1 Tablet (30 mg) by mouth at bedtime. 0 3 Active semaglutide (Wegovy) 0.25 mg/0.5 mL subcutaneous penIndications:M orbid exogenous obesity (HC) Inject 0.25 mg subcutaneous once weekly. 2 mL 4 Active cephalexin (KEFLEX) 500 mg capsuleIndicatio ns:urinary tract infection Take 1 Capsule (500 mg) by mouth two times daily. 14 Capsule 4 Active Active Problems Problem Noted Date Diagnosed Date Pap smear for cervical cancer screening 03/09/20 24 Overview (03/09/2024): 02/2024 NIL/HPV negative Plan: HPV based testing in 5 years Attention deficit disorder (ADD) without hyperac tivity 12/03/2020 Adjustment insomnia 10/11/2020 Chronic bilateral thoracic back pain 10/11/2020 Recurrent major depressive disorder, in full rem ission 10/11/2020 Chronic pain of both shoulders 01/22/2020 Muscle weakness 01/22/2020 Neck pain 01/22/2020 Trapezius muscle spasm 01/22/2020 Segmental and somatic dysfunction 01/17/2020 LONNY (generalized anxiety disorder) 03/18/2019 History of methamphetamine abuse 03/18/2019 Overview (08/30/2021): Effective living ctr 2017. Goes to NA/AA meetings Effective living ctr 2017. Goes to NA/AA meetings Tobacco abuse 03/18/2019 Overview (08/30/2021): 1ppd Acne 11/02/2018 Episode of recurrent major depressive disorder 1 10/13/2016 Overview (08/30/2021): manadgeable, will call with concerns or increases Immunizations Immunization Administration Dates Next Due HPV 9 (Gardasil [...] 0 07/13/2023 Social Connections Answer Date Recorded Do you often feel lonely or isolated from those around you? 0 11/03/2023 Financial Resource Strain Answer Date R ecorded Difficulty of Paying Living Expenses 3 11/03/2023 Difficulty of Paying Living Expenses Not on file 11/03/2023 Food Insecurity Answer Date Recorded Do you worry your food will run out before you are able to buy more? 1 11/03/2023 Transportation Needs Answer Date Record ed Does lack of transportation keep you from medica l appointments? 1 11/03/2023 Does lack of transportation keep you from work, meetings or getting things that you need? 1 11/03/2023 Housing Stability Answer Date Recorded What is your housing situation today? 1 11/03/2023 Interpersonal Safety Answer Date Record ed Are you being hit, kicked, p ushed or yelled at (see row info)? No 05/03/2024 Interpersonal Safety Abuse 12 - 18 Not on file 05/03/2024 Interpersonal Safety Ambulatory Vulnerability No t on file 05/03/2024 Utilities Answer Date Recorded Do you have trouble paying f or utilities (for example, heat, electricity, water, phone)? 1 11/03/2023 Comments No Sex and Gender Information Value Date Recorded Sex Assigned at Not on file Legal Sex Female 9:09 AM CMO Gender Identity Not on file Sexual Orientation Not on file Obstetrics History Last Filed Vital Signs Vital Sign Reading Time Taken Comments Blood Pressure 141/83 05/03/2024 8:55 PM CDT Pulse 104 05/03/2024 8:55 PM CDT Temperature 36.2 C (97.1 F) 05/03/2024 8:55 PM CDT Respiratory Rate 18 05/03/2024 8:55 PM CDT Oxygen Saturation 98% 05/03/2024 8:55 PM CDT Inhaled Oxygen Concentration - - Weight 127.9 kg (282 lb) 05/03/2024 8:55 PM CDT Height 170.2 cm (5' 7) 05/03/2024 8:55 PM CDT Body Mass Index 44.17 05/03/2024 8:55 PM CDT Plan of Treatment Health Maintenance Due Date Last Done Comments Depression screening for age 12+ 2004 Pneumococcal series for age 6-49 (2 of 2 - PCV) 05/11/2018 05/11/2017 COVID-19 vaccine series ( - season) 2024 BMI (ht and wt on same day) for age 18+ 07/13/2024 07/13/2023 Influenza Vaccine (Season Ended) 2025 05/10/2020, 07/01/2019, 04/28/2017, Additional history exists Tetanus booster 02/19/2027 02/19/2017, 01/2015, 07/27/2013, Additional history exists Pap test for age 21-65 02/28/2029 , 02/29/2024, 09/10/2020 (Verified in Care Everywhere or Patient Record) Tdap Completed 02/19/2017, 01/2015, 07/27/2013, Additional history exists HIV for age 15-65 Completed 11/03/2023 Hepatitis C screening for ag e 18-79 Completed 11/03/2023 Procedures Procedure Name Priority Date/Time Associated Diagnosis Comments HPV HIGH RISK Routine 02/29/2024 10:50 AM CDT Screening for cervical cancer ANTI HIV 1/2 Routine 11/03/2023 3:00 PM CDT Screening examination for STD (sexually transmitted disease) ANTI HCV Routine 11/03/2023 3:00 PM CDT Screening examination for STD (sexually transmitted disease) from Last 3 Months or Most Recently Relevant to Health Maintenance Results * HPV HIGH RISK (02/29/2024 10:50 AM CDT) TYPE 16 Negative Negative 03/07/2024 5:19 PM CDT [facility] TYPE 18 Negative Negative 03/07/2024 5:19 PM CDT [facility] OTHER HIGH RISK TYPES Negative Negative 03/07/2024 5:[address] [facility] Other (Cervical) Non-Blood / Unknown 02/29/2024 10:50 AM CDT 03/03/2024 10:56 AM CDT Narrative [facility] - 03/07/2024 5:19 PM CDT HPV types 16, 18, 31, 33, 35, 39, 45, 51, 52, 56, 58, 59, 66 and 68 DNA were undetectable or below the pre-set threshold. Methodology: Mere Nasreen 4800 HPV Test us Chelsea Islas MD MICROBIOLOGY Final Resul t [facility] [address] [place] [address], * ANTI HCV (11/03/2023 3:00 PM CDT) HEPATITIS C ANTIBODY Non-Reacti ve Non-React suki 11/03/2023 8:09 PM CDT [facility] Comment:Please note, per www .CDC.gov: [...] CDT 11/03/2023 3:00 PM CDT Belinda Ward DIE FORGER SEND OUTS Final Result Performing Organization Address City/[facility]/ZIP Co de Phone Number [facility] [address] [address], * ANTI HIV 1/2 (11/03/2023 3:00 PM CDT) HIV-1/HIV-2 SCREEN Non-Reacti ve Non-Reacti ve 11/03/2023 8:03 PM CDT [facility] Comment:HIV-1 p24 and HIV-1/ HIV-2 Ab Not Detected. Blood BLOOD SPECIMEN / Unknown Venipuncture / Unknown 11/03/2023 3:00 PM CDT 11/03/2023 3:00 PM CDT Belinda Ward NP SEND OUTS Final Result Performing Organization Address [facility] Co de Phone Number [facility] [address] [place] [address], from Last 3 Months or Most Recently Relevant to Health Maintenance Additional Health Concerns Infection Onset Date Last Indicated MRSA 04/23/2022 04/23/2022 Insurance [facility] Care Teams Advertising Rep Relationship Specialty Start Date End Date Chelsea Islas MD [address] [place] [address] PCP - General Family Practice 02/29/24
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
--- OUTSIDE RECORDS SUMMARY | 2025-01-05 15:52 | XMS_ITS | Encounter Summary ---
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 Gender Identity Not on file Sexual Orientation Not on file documented as of this encounter Plan of Treatment Not on file documented as of this encounter Visit Diagnoses Not on filedocumented in this encounter Additional Health Concerns Infection Onset Date Last Indicated Resolved Time MRSA 12/23/2021 12/23/2021 Assessment Noted Time PHQ-9 Depression Total Score: 10 022 1:15 PM CDT documented as of this encounter Care Teams Supervisor Cigar Making Hand Relationship Specialty Start Date End Date No Ref-Primary, Physician PCP - General 12/23/21 Rob Moreno MD [address] [facility] [address] [place], [place] [id number] Referring Physician Family Medicine 10/04/20 Flory Golden, MARKETING SALES CONSULTANT [facility] [address] [place] [phone] Referring Physician Primary Care - CC 12/19/21 Wilberto French MD [address] [place] [address] [address] [place], [place] [address] Dermapathology 12/19/21 Emani Estes APRN EMERGENCY MEDICINE SPECIALIST [address] [place] [id number] Assigned PCP 09/10/23 documented as of this encounter
[2025-01-05 15:54] VITALS: BP 130/83; PULSE 104; RESP 16; TEMP 36.7; O2SAT 96; BMI 42.1
--- NOTE | 2025-01-05 16:17 | ED.GENADULT ---
HPI - General Adult General Chief complaint: Laceration/Wound Stated complaint: Sores that are infected on stomach and buttocks Time Seen by Provider: 01/05/25 15:58 Source: patient Mode of arrival: ambulatory Limitations: no limitations History of Present Illness HPI narrative: 34-year-old female coming in today complaining of infected sores on her body. Patient has a history of methamphetamine use and unfortunately relapsed about a month ago. She has for several weeks from now has been clean for the last week. Unfortunately, when she uses she states that she gets little almost pimples under her skin and she picks at them and sometimes they get infected. This has happened in the past. She states that she has a history of MRSA positive abscesses of the skin. She denies any systemic symptoms. Denies fevers, chills, nausea or vomiting. States that she has 3 particular lesions but she feels are infected and are tender. Related Data Home Medications ?Medication ?Instructions ?Recorded ?Confirmed bupropion HCl PO 08/21/23 08/16/24 clonidine HCl .Route 08/21/23 08/16/24 hydroxyzine pamoate .Route 08/21/23 08/16/24 mirtazapine .Route 08/21/23 08/16/24 venlafaxine PO 08/21/23 08/16/24 bupropion HCl 150 mg 24 hr tablet, 150 mg PO QAM 08/16/24 08/16/24 extended release dextroamphetamine-amphetamine ER 1 cap PO DAILY 08/16/24 08/16/24 25 mg 24hr capsule,extend release multivitamin with folic acid 400 1 tab PO DAILY 08/16/24 08/16/24 mcg tablet (Daily-Casey (with folic acid)) omeprazole 20 mg capsule,delayed 20 mg PO DAILY 08/16/24 08/16/24 release Allergies Allergy/AdvReac Type Severity Reaction Status Date / Time No Known Drug Allergies Allergy Verified 01/05/25 15:54 Review of Systems Status of ROS: Reports: 10 or more systems reviewed and unremarkable except as noted in History and below [facility] Social History Smoking Status: Never smoker Do you use any of these nicotine containing products: Vaping Products Second hand tobacco smoke exposure: No How often do you have a drink containing alcohol: never How often do you have six or more drinks on one occasion: Never AUDIT-C Alcohol total score: 0 Non-prescribed substance use: former substance user Exam Narrative: Exam Narrative: Obese, well-developed patient in no acute distress. Alert and oriented. Answers questions appropriately. Mood and affect are appropriate. Thoughts are goal oriented and rational. No tangential or magical thinking noted. Patient speaks in full sentences without needing to catch her breath. HEENT: Normocephalic atraumatic. Pupils are equally round reactive to light. Extraocular muscles are intact. Conjunctivae are moist without any icterus noted. Moist mucous membranes. Skin: Well perfused. Patient has many areas of skin that have been picked and are scabbing over. A great deal of them are over the lower extremities, lower abdomen and buttocks. She has 1 lesion on the lower left buttocks and 1 on the outer left thigh that have surrounding erythema, swelling or tender to touch. She also has an erythematous lesion of the anterior lower abdomen which also appears to be infected. Const: Vital Signs, click to edit/add: Vital Signs - 24 hr 01/05/25 15:54 Temperature 98.1 F Pulse Rate [Pulse Oximeter] 104 H Respiratory Rate 16 Blood Pressure [Ri ght Upper Arm] 130/83 Pulse Oximetry 96 Oxygen Delivery Me thod Room Air Course Vital Signs Vital signs: Initial Vital Signs Temperature 98.1 F 01/05/25 15:54 Temperature Source Temporal Artery Scan 01/05/25 15:54 Pulse Rate 104 H 01/05/25 15:54 Respiratory Rate 16 01/05/25 15:54 Blood Pressure 130/83 01/05/25 15:54 Blood Pressure Mean 98 01/05/25 15:54 Blood Pressure Position Sitting 01/05/25 15:54 Pulse Oximetry 96 01/05/25 15:54 Oxygen Delivery Method Room Air 01/05/25 15:54 Vital Signs Temperature 98.1 F 01/05/25 15:54 Pulse Rate 104 H 01/05/25 15:54 Respiratory Rate 16 01/05/25 15:54 Blood Pressure 130/83 01/05/25 15:54 Pulse Oximetry 96 01/05/25 15:54 Oxygen Delivery Method Room Air 01/05/25 15:54 Temperature 98.1 F 01/05/25 15:54 Pulse Rate 104 H 01/05/25 15:54 Respiratory Rate 16 01/05/25 15:54 Blood Pressure 130/83 01/05/25 15:54 Pulse Oximetry 96 01/05/25 15:54 Oxygen Delivery Method Room Air 01/05/25 15:54 Medical Decision Making MDM Narrative Medical decision making narrative: 34-year-old female with 3 skin lesions that appear to have cellulitis. Multiple areas of skin that have been thickness scabbing over the whole appropriately. Will treat the patient Bactrim DS p.o. b.i.d. for 10 days Discharge Plan Discharge Clinical Impression: Cellulitis Patient Disposition: Home, Self-Care Condition: Stable Additional Instructions: Take medication as prescribed. Recommend follow up with primary care provider this coming week to make sure that lesions are healing appropriately. Bactrim DS 2 times daily for [facility] Prescriptions: No Action dextroamphetamine-amphetamine 25 mg capsule,extended release 24hr 1 cap PO DAILY bupropion HCl 150 mg tablet extended release 24 hr 150 mg PO QAM omeprazole 20 mg capsule,delayed release(DR/EC) 20 mg PO DAILY multivitamin with folic acid [Daily-Casey (with folic acid)] 400 mcg tablet 1 tab PO DAILY clonidine HCl .Route venlafaxine PO hydroxyzine pamoate .Route mirtazapine .Route bupropion HCl [Wellbutrin SR] PO Follow Up/Referrals: Provider,Not a Local [Primary Care Provider, Family Practice] Stand Alone Forms: [employer] Info Instructions
[2025-01-05 16:52] VITALS: BP 126/77; PULSE 100; RESP 16
== END 2025-01-05 16:59 | disposition home or self-care (01) ==
PROVIDERS: Emergency Provider Family Medicine
DX: L03.311 Cellulitis of abdominal wall (principal); L03.317 Cellulitis of buttock
CPT/HCPCS: 99283

== ENCOUNTER 2025-02-23 13:01 | Emergency (ER) | payer MEDICAID, SELFPAY ==
--- OUTSIDE RECORDS SUMMARY | 2025-02-23 13:04 | XMS_ITS | Clinical Summary ---
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 Gender Identity Not on file Sexual Orientation [...] Last Done Comments Pneumococcal series for age 6-49 (2 of 2 - PCV) 05/11/2018 05/11/2017 Hepatitis B series for 19+ ( 2 of 3 - 19+ 3-dose series) 03/03/2022 02/03/2022 COVID-19 vaccine series ( - season) 2024 BMI (ht and wt on same day) for age 18+ 07/13/2024 07/13/2023 Depression screening for age 12+ 2024 07/14/20 23, 07/13/2023 Influenza Vaccine (#1) 2025 , 07/01/2019, 04/28/2017, Additional history exists Tetanus booster 02/19/2027 02/19/2017, 1101/2015, 07/27/2013, Additional history exists Pap test for age 21-65 02/28/2029 , 02/29/2024, 09/10/2020 (Verified in Care Everywhere or Patient Record) HIV for age 15-65 Completed 11/03/2023 Hepatitis [...] 16 Negative Negative 03/07/2024 5:19 PM CDT [facility] TYPE 18 Negative Negative 03/07/2024 5:19 PM CDT [facility] TRA [facility] OTHER HIGH RISK TYPES Negative Negative 03/07/2024 5:19 PM CDT [facility] Other (Cervical) Non-Blood / Unknown 02/29/2024 10:50 AM CDT 03/03/2024 10:56 AM CDT Narrative [facility] - 03/07/2024 5:19 PM CDT HPV types 16, 18, 31, 33, 35, 39, 45, 51, 52, 56, 58, 59, 66 and 68 DNA were undetectable or below the pre-set threshold. Methodology: Mere Nasreen 4800 HPV Test us Chelsea Islas MD MICROBIOLOGY Final Resul t [facility] [address] [place] [address], * ANTI HCV (11/03/2023 3:00 PM CDT) HEPATITIS C ANTIBODY Non-Reacti ve Non-React suki 11/03/2023 8:09 PM CDT [facility] Comment:Please note, per [...] SEND OUTS Final Result Performing Organization Address [facility] Co de Phone Number [facility] [address] [address], [place] * ANTI HIV 1/2 (11/03/2023 3:00 PM CDT) HIV-1/HIV-2 SCREEN Non-Reacti ve Non-Reacti ve 11/03/2023 8:03 PM CDT [facility] Comment:HIV-1 p24 and HIV-1/ HIV-2 Ab Not Detected. Blood BLOOD SPECIMEN / Unknown Venipuncture / Unknown 11/03/2023 3:00 PM CDT 11/03/2023 3:00 PM CDT Belinda Ward NP SEND OUTS Final Result Performing Organization Address [facility] [address]/[facility] de Phone Number [facility] [address] [address], from Last 3 Months or Most Recently Relevant to Health Maintenance Additional Health Concerns Infection Onset Date Last Indicated MRSA 04/23/2022 04/23/2022 Insurance [facility] Care Teams Secretary To The Vice President Relationship Specialty Start Date End Date Chelsea Islas MD [address] [place] [id number] PCP - General Family Practice 02/29/24
--- OUTSIDE RECORDS SUMMARY | 2025-02-23 13:04 | XMS_ITS | Clinical Summary ---
Author Organization [facility] Address [address] [place] [address] Care Team Providers Care Records Associate Name Role Phone Madhav Moreno MD Unavailable [phone] Flory Golden NP Unavailable [phone] Wilberto French MD Unavailable [phone] No Ref-Primary, Physician Primary Care Provider Emani Estes AUDIT INTERN MANAGER [employer] Unavailable Allergies Active Allergy Reactions Criticality Noted [...] CDT - 12/30/2024 6:39 PM CDT Emergency [facility] Emergency Dept [address] [place] [id number] Cyn Raymundo MD Discharge Disposition: Left Without [...] on file 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 Gender Identity Not on file Sexual Orientation [...] ORDERS 1992 DEPRESSION ACTION PLAN 1992 HPV VACCINE (3 - 3-dose series) 09/23/2019 07/01/2019, 01/03/2010 HEPATITIS B VACCINE (2 of 3 - 19+ 3-dose series) 03/03/2022 02/03/2022 PHQ-9 06/25/2022 12/23/2021, 12/18/2021 YEARLY PREVENTIVE VISIT 12/18/2022 12/18/2021 COVID-19 VACCINE ( season) 2024 INFLUENZA VACCINE (Season Ended) 2025 05/10/2020, 07/01/2019, 04/28/2017, Additional history exists DTAP/TDAP/TD VACCINE (6 - Td or Tdap) 02/19/2027 02/19/2017, 06/22/2015, 07/27/2013, Additional history exists PAP 02/28/2027 02/29/2024, 08/18, 06/22/2017 ZOSTER VACCINE (1 of 2) 2042 MENINGITIS VACCINE Completed 10/26/2008 PNEUMOCOCCAL VACCINE: PEDIATRICS (0 to 5 YEARS) AND AT-RISK PATIENTS (6 to 49 YEARS) Aged Out 05/11/2017 No longer eligible based on patient's age to complete this topic HEPATITIS C SCREENING Completed 11/03/2023 , 06/25/2022, 12/18/2021, Additional history exists HIV SCREENING Completed 11/03/2023, 04/2022, 12/18/2021, Additional history exists Procedures Procedure Name Priority Date/Time Associated Diagnosis Comments HIV ANTIGEN ANTIBODY COMBO Routine 06/25/2022 11:38 AM HOP WEIGHER Person living in residential institution HEPATITIS C SCREEN REFLEX TO HCV RNA QUANT AND GENOTYPE Routine 06/25/2022 11:38 AM HOP WEIGHER Person living in residential institution PAP IMAGED THIN LAYER SCREEN Routine 09/10/2020 11:37 AM HOP WEIGHER Screening for cervical cancer from Last 3 Months or Most Recently Relevant to Health Maintenance Results * HIV Antigen Antibody Combo (06/25/2022 11:38 AM HOP WEIGHER) HIV Antigen Antibody Combo Nonreactive Nonreactive 06/26/2022 11:49 AM HOP WEIGHER [facility] DO Comment:HIV-1 p24 Ag & HIV-1 /HIV-2 Ab Not Detected Blood STRUCTURE OF RIGHT UPPER LIMB / Unknown Venipuncture / Unknown 06/25/2022 11:38 AM HOP WEIGHER 06/25/2022 11:38 AM HOP WEIGHER us Flory Golden NP LAB - BLOOD ORDERABLES Final R esult Performing Organization Address City/[facility]/ZIP Co de Phone Number [facility] Specialty Core/Prot/Endo [address] [facility], [address] [phone] * Hepatitis C Screen Reflex to HCV RNA Quant and Genotype (06/25/2022 11:38 AM HOP WEIGHER) Hepatitis C Antibody Nonreactive Nonreactive 06/26/2022 11:49 AM HOP WEIGHER [facility] DO Blood STRUCTURE OF RIGHT UPPER LIMB / Unknown Venipuncture / Unknown 06/25/2022 11:38 AM HOP WEIGHER 06/25/2022 11:38 AM HOP WEIGHER Narrative [facility] - 06/26/2022 11:49 AM HOP WEIGHER Assay performance characteristics have not been established for newborns, infants, and children. us Flory Golden NP LAB - BLOOD ORDERABLES Final R esult [facility] Specialty Core/Prot/Endo [address] [facility] [address] [facility], [address] [phone] * Pap imaged thin layer screen reflex to HPV if ASCUS - recommend age 25 - 29 (09/10/2020 11:37 AM HOP WEIGHER) PAP FREDY Nova Report Patient Name: EMILEE CURRAN MR#: [id number] Specimen #: [id number] Collected: 09/10/2020 Received: 09/11/2020 Reported: 09/14/2020 15:15 Ordering Phy(s): MDAHAV MORENO For improved result formatting, select 'View [...] adenocarcinomas or other cancers. COLLECTION SITE: Client: [facility] Location: [facility] (B) The technical component of this testing was completed at the [facility], with the professional component performed at the [facility], [address] [place] [phone] ([phone]) PAUL Cytologic material (specimen) 09/10/2020 11:37 AM HOP WEIGHER 09/11/2020 8:52 AM HOP WEIGHER Madhav Moreno MD LAB - [facility] AL SPECIMEN Final Result COPATH from Last 3 Months or Most Recently Relevant to Health Maintenance Additional Health Concerns Infection Onset Date Last Indicated MRSA 12/23/2021 12/23/2021 Care Teams Records Associate Relationship Specialty Start Date End Date No Ref-Primary, Physician PCP - General 12/23/21 Madhav Moreno MD [id number] [facility] [address] [place] [address] Referring Physician Family Medicine 10/04/20 Flory Golden, NATURAL SCIENCES PROFESSOR [facility] [address] [place] [phone] Referring Physician Primary Care - CC 12/19/21 Wilberto French MD [address] [facility] [address] [place], [place] [id number] Dermapathology 12/19/21 Emani Estes APRN MANAGER [employer] [address] [place], [place] [address] Assigned PCP 09/10/23
[2025-02-23 13:05] VITALS: BP 137/91; PULSE 84; RESP 20; TEMP 36.7; O2SAT 97; BMI 39.2
--- NOTE | 2025-02-23 13:05 | ED.GENADULT ---
HPI - General Adult General Date Seen: 02/23/25 Chief complaint: Urogenital Problems, Female Stated complaint: Cellulitis R thigh, UTI Time Seen by Provider: 02/23/25 13:05 History of Present Illness HPI narrative: 34 yo F with a history of methamphetamine abuse and also history of infected skin sores and history of MRSA positive skin abscesses. She was seen here in the ER on 01/05/2025. Given a prescription for Bactrim DS b.i.d. for 10 days. She says that when she took the antibiotics the sores got better and were virtually gone. However she has a history of MRSA colonization and often times the source come back. She has been experiencing were sores in particular on her skin of her buttocks at the top of her thigh and a some sores on the inside of her left ear for the past couple of weeks and they have gotten worse. She is worried that developing worsening infection so she came back to the ER wanting to get back on some antibiotics for MRSA. She also notes for the past several days she has had some urinary urgency and a sensation that her bladder is not fully emptying when she urinates. She has also noticed some yellowish, watery, mucousy discharge from her vagina in her underwear. The patient reports that in December she was relapsed with methamphetamine and had been on a binge. During that binge she made some ?irresponsible decisions? and had some unprotected sexual activity. She is very remorseful about that. She has been sober from meth since prior to her ER visit in December and continues to work every day to maintain sobriety. She is concerned about her vaginal discharge and is worried she might have contracted a sexually transmitted infection. She has not had any high risk sexual activity since December. She does want to be tested for STDs. She agrees to do vaginal self swab for gonorrhea and chlamydia and also would like blood test to check for HIV and syphilis. Related Data Home Medications ?Medication ?Instructions ?Recorded ?Confirmed bupropion HCl PO 08/21/23 08/16/24 clonidine HCl .Route 08/21/23 08/16/24 hydroxyzine pamoate .Route 08/21/23 08/16/24 mirtazapine .Route 08/21/23 08/16/24 venlafaxine PO 08/21/23 08/16/24 bupropion HCl 150 mg 24 hr tablet, 150 mg PO QAM 08/16/24 02/23/25 extended release dextroamphetamine-amphetamine ER 1 cap PO DAILY 08/16/24 02/23/25 25 mg 24hr capsule,extend release multivitamin with folic acid 400 1 tab PO DAILY 08/16/24 02/23/25 mcg tablet (Daily-Casey (with folic acid)) omeprazole 20 mg capsule,delayed 20 mg PO DAILY 08/16/24 02/23/25 release Previous Rx's ?Medication ?Instructions ?Recorded doxycycline monohydrate 100 mg 100 mg PO BID 7 days #14 caps 02/23/25 capsule sulfamethoxazole 800 1 tab PO BID 10 days #20 tabs 02/23/25 mg-trimethoprim 160 mg tablet (Bactrim DS) Allergies Allergy/AdvReac Type Severity Reaction Status Date / Time No Known Drug Allergies Allergy Verified 02/23/25 13:28 [facility] Social History Smoking Status: Never smoker Do you use any of these nicotine containing products: Vaping Products Second hand tobacco smoke exposure: No How often do you have a drink containing alcohol: never How often do you have six or more drinks on one occasion: Never AUDIT-C Alcohol total score: 0 Non-prescribed substance use: former substance user Exam Narrative: Exam Narrative: Constitutional: Appears well-developed and well-nourished. Alert. Conversant. Non toxic. HENT: Head: Atraumatic. Nose: Nose normal. Left ear: Pinna, mastoid are normal. Small amount of erythema at the opening of the canal. No purulent discharge. No foreign body. TM Mouth/Throat: Oral mucosa is clear and moist. no trismus. Pharynx normal. Tonsils symmetric. No tonsillar enlargement, erythema, or exudate. Eyes: Conjunctivae normal. EOM normal. Pupils equal, round, and reactive to light. No scleral icterus. Neck: Normal range of motion. Neck supple. No tracheal deviation present. Cardiovascular: Normal rate, regular rhythm. No gallop. No friction rub. No murmur heard. Symmetric radial artery pulses Pulmonary/Chest: Effort normal. No stridor. No respiratory distress. No wheezes. No rales. No rhonchi Abdominal: Soft.No distension. No mass. No tenderness. No rebound. No guarding. Musculoskeletal: RUE: Normal range of motion. No tenderness. No deformity LUE: Normal range of motion. No tenderness. No deformity RLE: Normal range of motion. No edema. No tenderness. No deformity LLE: Normal range of motion. No edema. No tenderness. No deformity Neurological: Alert and oriented to person, place, and time. Normal strength. CN II-VII intact. No sensory deficit. GCS eye subscore is 4. GCS verbal subscore is 5. GCS motor subscore is 6. Normal coordination Skin: Reason she has multiple scattered superficial erythematous round 1-2 cm lesions on her skin of her buttocks which all could be consistent with superficial skin infections. None of them are deep. No palpable fluctuance. No crepitus. No evidence for abscess or necrotizing infection. is warm and dry. No rash noted. No pallor. Normal capillary refill. Psychiatric: Normal mood. Normal affect. Const: Vital Signs, click to edit/add: Vital Signs - 24 hr 02/23/25 13:05 Temperature 98.0 F Pulse Rate [Left P ulse Oximeter] 84 Respiratory Rate 20 Blood Pressure [Ri ght Upper Arm] 137/91 H Pulse Oximetry 97 Oxygen Delivery Me thod Room Air Course Vital Signs Vital signs: Initial Vital Signs Temperature 98.0 F 02/23/25 13:05 Temperature Source Temporal Artery Scan 02/23/25 13:05 Pulse Rate 84 02/23/25 13:05 Respiratory Rate 20 02/23/25 13:05 Blood Pressure 137/91 H 02/23/25 13:05 Blood Pressure Mean 106 H 02/23/25 13:05 Blood Pressure Position Sitting 02/23/25 13:05 Pulse Oximetry 97 02/23/25 13:05 Oxygen Delivery Method Room Air 02/23/25 13:05 Vital Signs Temperature 98.0 F 02/23/25 13:05 Pulse Rate 84 02/23/25 13:05 Respiratory Rate 20 02/23/25 13:05 Blood Pressure 137/91 H 02/23/25 13:05 Pulse Oximetry 97 02/23/25 13:05 Oxygen Delivery Method Room Air 02/23/25 13:05 Temperature 98.0 F 02/23/25 13:05 Pulse Rate 84 02/23/25 13:05 Respiratory Rate 20 02/23/25 13:05 Blood Pressure 137/91 H 02/23/25 13:05 Pulse Oximetry 97 02/23/25 13:05 Oxygen Delivery Method Room Air 02/23/25 13:05 Medications Administered Medications: Discontinued Medications Generic Name Dose Route Start Last Admin Trade Name Heidy PRN Reason Stop Dose Admin Ceftriaxone Sodium 500 mg 02/23/25 13:33 02/23/25 13:49 Ceftriaxone 500 Mg Vial IM 02/23/25 13:34 500 mg ONCE ONE Administration Lidocaine HCl 1 ml 02/23/25 13:33 02/23/25 13:49 Lidocaine 1% 5 Ml (Pf) 5 Ml Vial IM 1 ml DIRECTED PRN Administration Pain Medical Decision Making MDM Narrative Medical decision making narrative: Very pleasant 34-year-old female presenting to the ER today with several concerns. 1. She has a history of MRSA skin infection and has been noticing several lesions on her skin over the past couple of weeks in particular some painful red lesions on the top of her thigh at the junction of her buttock. On my exam she does have a couple of skin lesions there which are red, but no deep inflammation or signs of abscess or necrotizing infection. She is otherwise afebrile and nontoxic. Will have her do another course of Bactrim to cover for MRSA skin infection. Would recommend outpatient follow-up with PCP or Dermatology . She wonders whatr treatments are available to get rid of the MRSA colonization. 2. She has been noticing some urinary symptoms including some cloudy urine and sensation of incomplete bladder emptying for the past couple of days and is concerned that she may have a UTI. Urinalysis does show pyuria which would be indicative for UTI. She is not having any suprapubic pain, flank pain, fever, nausea or vomiting. No evidence for pyelonephritis or urosepsis. If not think she needs a CT scan to look for an associated obstructing kidney stone. We will treat her with antibiotics for her UTI. Will put her on Bactrim DS she. This would also cover for skin infections. She is not . 3. She also notes some high risk sexual contact that occurred in December when she was using meth. She has been sober from meth since December and has not had any high risk sexual contact since then. She has been noting a little bit of vaginal discharge for the past few days or week. She is concerned about potential STI. She would like to be tested for STIs. We discussed options for this. We elected on empiric treatment with Rocephin and doxycycline in case she has chlamydia or gonorrhea. She did a vaginal self swab to check a GC/CT PCR and also a vaginitis panel to see if there might be a yeast infection or Trichomonas. Will also do labs to check serum for syphilis and HIV. She all the results of the patient's vaginal swab, as well as blood tests are pending at the time of this dictation. If they are positive, I told the patient we would contact her by phone to discuss the results. Prescriptions for Bactrim DS b.i.d. for 10 days and doxycycline 100 b.i.d. for 7 days. Lab Data Labs: Lab Results 02/23/25 02/23/25 Range/Units 13:45 13:48 HCG, Quant < 2.39 mIU/mL Urine Color Yellow (Yellow) Urine Appearance Slightly Cloudy A (Clear) Urine pH 6.0 (5.0-8.5) Ur Specific [place] 1.025 (1.000-1.030) Urine Protein 1+ A (Negative) Urine Glucose (UA) Negative (Negative) Urine Ketones Negative (Negative) Urine Blood Negative (Negative) Urine Nitrite Negative (Negative) Urine Bilirubin Negative (Negative) Urine Urobilinogen 0.2 (0.2-1.0) Ur Leukocyte Esterase 1+ A (Negative) Urine RBC 0-2 (0-2) Urine WBC 10-25 A (0-5) Urine WBC Clumps Few A (None) Ur Squamous Epith Cells Few (None-Few) Urine Bacteria Moderate A (None) Vaginal Bacterial Vaginosis POSITIVE A (Negative) Vaginal Jeannie species NOT DETECTED (No Detected) Vag C. glabrata/krusei NOT DETECTED (No Detected) Vag T. vaginalis DETECTED A (No Detected) HIV 1&2 Ab/P24 Ag 4thGn Negative (Negative) Discharge Plan Discharge Clinical Impression: Urinary tract infection, Cellulitis, Vaginal discharge, Concern about STD in female without diagnosis Patient Disposition: Home, Self-Care Condition: Stable Instructions: Urinary Tract Infection in Women (ED), Cellulitis (ED) Additional Instructions: As we discussed, your urine sample is mildly abnormal, indicative of a bladder infection. Please take the Bactrim and twice daily for 10 days to treat urinary infection also this will help treat you for MRSA on your skin. We are still waiting on the results of your other tests. Please take the doxycycline twice daily for 7 days. If you have worsening signs of skin infection, high fever, or any concerns, please come back to the ER right away to be rechecked. If your urine infection is not better within 2-3 days, or if you have worsening symptoms of UTI such as high fever, flank pain, or uncontrolled vomiting, please come back to the ER to be rechecked The results of your other tests including your swab and blood tests are not back yet. Please check your online chart or call the [facility] ER tomorrow at 5:07 a.m. [phone] follow up on your other test results. Prescriptions: New doxycycline monohydrate 100 mg capsule 100 mg PO BID 7 Days Qty: 14 0RF sulfamethoxazole-trimethoprim [Bactrim DS] 800-160 mg tablet 1 tab PO BID 10 Days Qty: 20 0RF No Action dextroamphetamine-amphetamine 25 mg capsule,extended release 24hr 1 cap PO DAILY bupropion HCl 150 mg tablet extended release 24 hr 150 mg PO QAM omeprazole 20 mg capsule,delayed release(DR/EC) 20 mg PO DAILY multivitamin with folic acid [Daily-Casey (with folic acid)] 400 mcg tablet 1 tab PO DAILY clonidine HCl .Route venlafaxine PO hydroxyzine pamoate .Route mirtazapine .Route bupropion HCl [Wellbutrin SR] PO Follow Up/Referrals: Provider,Not a Local [Primary Care Provider, Family Practice] Stand Alone Forms: [employer] Info Instructions
[2025-02-23] MEDS: LIDOCAINE 1% 5 ml (pf) 5 ML VIAL 1 ML IM (13:49)
[2025-02-23] MEDS: cefTRIAXone 500 MG VIAL IM (13:49)
[2025-02-23 14:12] LABS: Appearance Urine Slightly Cloudy (Clear)
[2025-02-23 14:39] LABS: HCG Quantitative* < 2.39 mIU/mL
[2025-02-23 14:59] LABS: HIV 1/2/P24 Combo Screen* Negative (Negative)
[2025-02-23 15:14] LABS: Bacterial Vaginosis* POSITIVE (Negative); Candida glab/krus NOT DETECTED (No Detected)
[2025-02-23 15:44] LABS: Chlamydia DNA Amplified* NOT DETECTED (No Detected); GC DNA Amplified* NOT DETECTED (No Detected)
--- NOTE | 2025-02-25 08:20 | ED.GENADULT ---
HPI - General Adult General Chief complaint: Urogenital Problems, Female Stated complaint: Cellulitis R thigh, UTI Time Seen by Provider: 02/23/25 13:05 History of Present Illness HPI narrative: Addendum to ER visit from 02/23 labs came back positive for Trichomonas. Negative for gonorrhea chlamydia. Negative for HIV. Syphilis pending. I attempted to contact the patient on her listed phone number [phone] at about 8:10 a.m. on 02/25. she did not answer. her voice pill box was full so I could not leave a message. Nurses will continue to try to contact her throughout the day today. I will send a prescription to her pharmacy at [facility] for Flagyl 500 b.i.d. for 7 days. I contacted her father and he will try to contact her and have her call us to get her test results. Nurses are aware and can give her her test results over the phone. Prescription has already been sent. Related Data Home Medications ?Medication ?Instructions ?Recorded ?Confirmed bupropion HCl PO 08/21/23 08/16/24 clonidine HCl .Route 08/21/23 08/16/24 hydroxyzine pamoate .Route 08/21/23 08/16/24 mirtazapine .Route 08/21/23 08/16/24 venlafaxine PO 08/21/23 08/16/24 bupropion HCl 150 mg 24 hr tablet, 150 mg PO QAM 08/16/24 02/23/25 extended release dextroamphetamine-amphetamine ER 1 cap PO DAILY 08/16/24 02/23/25 25 mg 24hr capsule,extend release multivitamin with folic acid 400 1 tab PO DAILY 08/16/24 02/23/25 mcg tablet (Daily-Casey (with folic acid)) omeprazole 20 mg capsule,delayed 20 mg PO DAILY 08/16/24 02/23/25 release Previous Rx's ?Medication ?Instructions ?Recorded doxycycline monohydrate 100 mg 100 mg PO BID 7 days #14 caps 02/23/25 capsule sulfamethoxazole 800 1 tab PO BID 10 days #20 tabs 02/23/25 mg-trimethoprim 160 mg tablet (Bactrim DS) metronidazole 500 mg tablet 500 mg PO BID #14 tabs 02/25/25 Allergies Allergy/AdvReac Type Severity Reaction Status Date / Time No Known Drug Allergies Allergy Verified 02/23/25 13:28 PFSH PFSH Social History Smoking Status: Never smoker Do you use any of these nicotine containing products: Vaping Products Second hand tobacco smoke exposure: No How often do you have a drink containing alcohol: never How often do you have six or more drinks on one occasion: Never AUDIT-C Alcohol total score: 0 Non-prescribed substance use: former substance user Course Vital Signs Vital signs: Initial Vital Signs Temperature 98.0 F 02/23/25 13:05 Temperature Source Temporal Artery Scan 02/23/25 13:05 Pulse Rate 84 02/23/25 13:05 Respiratory Rate 20 02/23/25 13:05 Blood Pressure 137/91 H 02/23/25 13:05 Blood Pressure Mean 106 H 02/23/25 13:05 Blood Pressure Position Sitting 02/23/25 13:05 Pulse Oximetry 97 02/23/25 13:05 Oxygen Delivery Method Room Air 02/23/25 13:05 Vital Signs Temperature 98.0 F 02/23/25 13:05 Pulse Rate 84 02/23/25 13:05 Respiratory Rate 20 02/23/25 13:05 Blood Pressure 137/91 H 02/23/25 13:05 Pulse Oximetry 97 02/23/25 13:05 Oxygen Delivery Method Room Air 02/23/25 13:05 Temperature 98.0 F 02/23/25 13:05 Pulse Rate 84 02/23/25 13:05 Respiratory Rate 20 02/23/25 13:05 Blood Pressure 137/91 H 02/23/25 13:05 Pulse Oximetry 97 02/23/25 13:05 Oxygen Delivery Method Room Air 02/23/25 13:05 Medications Administered Medications: Discontinued Medications Generic Name Dose Route Start Last Admin Trade Name Freq PRN Reason Stop Dose Admin Ceftriaxone Sodium 500 mg 02/23/25 13:33 02/23/25 13:49 Ceftriaxone 500 Mg Vial IM 02/23/25 13:34 500 mg ONCE ONE Administration Lidocaine HCl 1 ml 02/23/25 13:33 02/23/25 13:49 Lidocaine 1% 5 Ml (Pf) 5 Ml Vial IM 1 ml DIRECTED PRN Administration Pain Medical Decision Making Lab Data Labs: Lab Results 02/23/25 02/23/25 Range/Units 13:45 13:48 HCG, Quant < 2.39 mIU/mL Urine Color Yellow (Yellow) Urine Appearance Slightly Cloudy A (Clear) Urine pH 6.0 (5.0-8.5) Ur Specific [place] 1.025 (1.000-1.030) Urine Protein 1+ A (Negative) Urine Glucose (UA) Negative (Negative) Urine Ketones Negative (Negative) Urine Blood Negative (Negative) Urine Nitrite Negative (Negative) Urine Bilirubin Negative (Negative) Urine Urobilinogen 0.2 (0.2-1.0) Ur Leukocyte Esterase 1+ A (Negative) Urine RBC 0-2 (0-2) Urine WBC 10-25 A (0-5) Urine WBC Clumps Few A (None) Ur Squamous Epith Cells Few (None-Few) Urine Bacteria Moderate A (None) Vaginal Bacterial Vaginosis POSITIVE A (Negative) Vaginal Jeannie species NOT DETECTED (No Detected) Vag C. glabrata/krusei NOT DETECTED (No Detected) Vag T. vaginalis DETECTED A (No Detected) C.trachomatis Ampl DNA NOT DETECTED (No Detected) HIV 1&2 Ab/P24 Ag 4thGn Negative (Negative) N.gonorrhoeae Ampl DNA NOT DETECTED (No Detected) Discharge Plan Discharge Clinical Impression: Urinary tract infection, Cellulitis, Vaginal discharge, Concern about STD in female without diagnosis, Trichomonal vaginitis Patient Disposition: Home, Self-Care Condition: Stable Instructions: Urinary Tract Infection in Women (ED), Cellulitis (ED) Additional Instructions: As we discussed, your urine sample is mildly abnormal, indicative of a bladder infection. Please take the Bactrim and twice daily for 10 days to treat urinary infection also this will help treat you for MRSA on your skin. We are still waiting on the results of your other tests. Please take the doxycycline twice daily for 7 days. If you have worsening signs of skin infection, high fever, or any concerns, please come back to the ER right away to be rechecked. If your urine infection is not better within 2-3 days, or if you have worsening symptoms of UTI such as high fever, flank pain, or uncontrolled vomiting, please come back to the ER to be rechecked The results of your other tests including your swab and blood tests are not back yet. Please check your online chart or call the [facility] ER tomorrow at 5:07 a.m. [phone] follow up on your other test results. Prescriptions: New doxycycline monohydrate 100 mg capsule 100 mg PO BID 7 Days Qty: 14 0RF sulfamethoxazole-trimethoprim [Bactrim DS] 800-160 mg tablet 1 tab PO BID 10 Days Qty: 20 0RF metronidazole 500 mg tablet 500 mg PO BID Qty: 14 0RF No Action dextroamphetamine-amphetamine 25 mg capsule,extended release 24hr 1 cap PO DAILY bupropion HCl 150 mg tablet extended release 24 hr 150 mg PO QAM omeprazole 20 mg capsule,delayed release(DR/EC) 20 mg PO DAILY multivitamin with folic acid [Daily-Casey (with folic acid)] 400 mcg tablet 1 tab PO DAILY clonidine HCl .Route venlafaxine PO hydroxyzine pamoate .Route mirtazapine .Route bupropion HCl [Wellbutrin SR] PO Follow Up/Referrals: Provider,Not a Local [Primary Care Provider, Family Practice] Stand Alone Forms: [facility] Info Instructions
[2025-02-25 14:58] LABS: Treponema pallidum VDRL Serum Non Reactive (Non Reactive)
== END 2025-02-23 15:01 | disposition home or self-care (01) ==
PROVIDERS: Emergency Provider Emergency Medicine
DX: L03.115 Cellulitis of right lower limb (principal); N39.0 Urinary tract infection, site not specified; N89.8 Other specified noninflammatory disorders of vagina; F15.11 Other stimulant abuse, in remission; Z72.0 Tobacco use; Z72.51 High risk heterosexual behavior
CPT/HCPCS: 36415; 81001; 81513; 84702; 86592; 86593; 86703; 87086; 87481; 87491; 87591; 87661; 96372; 99281; 99283; 99284; J0696